=== PATIENT | male | born 1975 | race Caucasian/White ===

== ENCOUNTER 2019-04-10 09:38 | Emergency (ER) | payer MEDICAID ==
[~2019-04-10] VITALS: Ht 160 cm; Wt 65.0 kg
[2019-04-10] MEDS ORDERED: ASPIRIN 81MG TABLET PO ONE (10:15)
[2019-04-10 11:28] LABS: BASOPHILS % 1.1 % (0.0-2.0); EOSINOPHILS % 2.4 % (0.0-5.0); HEMATOCRIT. 49.9 % (42.0-52.0); HEMOGLOBIN. 17.2 g/dL (14.0-18.0); LYMPHOCYTES % 40.4 % (20.0-50.0); MEAN CORPUSCULAR HEMOGLOBIN 31.8 pg (28.0-32.0); MEAN CORPUSCULAR VOLUME 92.1 fL (80.0-94.0); MEAN PLATELET VOLUME 8.4 fl (7.4-10.4); MONOCYTES % 8.2 % (2.0-8.0); NEUTROPHILS % 47.9 % (40.0-76.0); PLATELET 178 x1000/uL (130-400); RED BLOOD CELL COUNT 5.42 mill/uL (4.7-6.1); RED CELL DISTRIBUTION WIDTH 12.7 % (11.6-14.6)
[2019-04-10 11:35] LABS: CHLORIDE 104 mEq/L (98-107)
[2019-04-10 13:36] VITALS: BP 128/98
== END 2019-04-10 13:37 | disposition home or self-care (01) ==
LOC: ER 09:38
DX: F10.10 Alcohol abuse, uncomplicated (principal); N48.1 Balanitis; E11.9 Type 2 diabetes mellitus without complications; R79.89 Other specified abnormal findings of blood chemistry; R07.9 Chest pain, unspecified; Y90.9 Presence of alcohol in blood, level not specified
CPT/HCPCS: 36415; 71045; 80053; 83880; 84484; 85025; 93005; 99284; Z7610

== ENCOUNTER 2022-09-14 10:47 | Emergency (ER) | payer SELFPAY ==
[~2022-09-14] VITALS: Ht 165.1 cm; Wt 80.0 kg
[2022-09-14 10:59] VITALS: O2SAT 100
[2022-09-14] MEDS ORDERED: SODIUM CHLORIDE 0.9% 1,000 ML IV ONE ×2 (11:15→14:45)
[2022-09-14 12:08] LABS: EOSINOPHILS % 0.3 % (0.0-5.0); HEMATOCRIT. 48.5 % (42.0-52.0); LYMPHOCYTES % 31.6 % (20.0-50.0); MEAN CORPUSCULAR VOLUME 92.5 fL (80.0-94.0); MEAN PLATELET VOLUME 10.1 fl (7.4-10.4); MONOCYTES % 9.5 % (2.0-8.0); NEUTROPHILS % 57.6 % (40.0-76.0); PLATELET 161 x1000/uL (130-400); RED BLOOD CELL COUNT 5.25 mill/uL (4.7-6.1); RED CELL DISTRIBUTION WIDTH 13.7 % (11.6-14.6)
[2022-09-14 12:31] LABS: HEMOGLOBIN. 16.8 g/dL (14.0-18.0)
[2022-09-14 12:40] VITALS: TEMP 98.6
[2022-09-14 14:08] LABS: INR 1.2; PROTHROMBIN TIME 12.9 sec (9.6-11.0)
[2022-09-14 14:35] LABS: CHLORIDE 97 mEq/L (98-107)
[2022-09-14 14:49] LABS: BETA HYDROXYBUTYRATE 0.3 mMol/L (0.0-0.3); ETHANOL BLOOD < 10 mg/dL (-10)
[2022-09-14] MEDS ORDERED: LORAZEPAM 2MG/ML CPJ IV NR (15:15)
[2022-09-14] MEDS ORDERED: MAGNESIUM/ALUMINUM HYDROXIDE/SIMETHICONE 30ML UDC PO NR (15:15)
[2022-09-14] MEDS ORDERED: METOCLOPRAMIDE HCL 10MG/2ML VIAL IV NR (15:15)
[2022-09-14] MEDS ORDERED: ONDA4TAB50 MT (15:22)
[2022-09-14] MEDS ORDERED: THIA250T3 MT (15:22)
[2022-09-14 16:20] LABS: CHLORIDE 99 mEq/L (98-107)
[2022-09-14 18:00] VITALS: BP 142/80; PULSE 80; RESP 18
== END 2022-09-14 19:07 | disposition home or self-care (01) ==
LOC: ER 10:59 → CANBEDREQ 17:53 → ER 19:07
DX: R42 Dizziness and giddiness (principal); R55 Syncope and collapse; E86.0 Dehydration; E11.9 Type 2 diabetes mellitus without complications; Z91.148 Patient's other noncompliance with medication regimen for other reason
CPT/HCPCS: 80053; 80048; 82010; 80320; 82962; 83605; 83690; 85025; 85610; 84484; 36415; 71045; 70450; 93005; 96361; 96374; 96375; 99285; J2060; J2765; J7030; Z7610 ×2; G0480

== ENCOUNTER 2022-11-10 08:02 | Emergency (ER) | payer SELFPAY ==
[~2022-11-10] VITALS: Ht 170.2 cm; Wt 101.0 kg
[~2022-11-10 08:02] MED LIST: ONDA4TAB50 MT; THIA250T3 MT
[2022-11-10 08:07] VITALS: BP 132/96; RESP 16; TEMP 98.9; O2SAT 99
[2022-11-10 08:11] VITALS: PULSE 98
[2022-11-10 08:46] LABS: HEMATOCRIT. 46.6 % (42.0-52.0); HEMOGLOBIN. 16.4 g/dL (14.0-18.0); MEAN CORPUSCULAR HEMOGLOBIN 33.7 pg (28.0-32.0); MEAN CORPUSCULAR HGB CONC 35.3 g/dL (31.0-37.0); MEAN CORPUSCULAR VOLUME 95.7 fL (80.0-94.0); MEAN PLATELET VOLUME 9.7 fl (7.4-10.4); PLATELET 111 x1000/uL (130-400); RED BLOOD CELL COUNT 4.87 mill/uL (4.7-6.1); RED CELL DISTRIBUTION WIDTH 14.2 % (11.6-14.6); WHITE BLOOD COUNT 6.2 x1000/uL (4.5-11.0)
[2022-11-10 08:54] LABS: DIFFERENTIAL COMMENT 1
[2022-11-10 10:15] LABS: POTASSIUM 4.4 mEq/L (3.5-5.1); SODIUM 133 mEq/L (136-145)
[2022-11-10 10:16] LABS: ALANINE AMINOTRANSFERASE 110 IU/L (13-61); ALBUMIN 3.3 g/dL (3.4-5.0); ASPARTATE AMINOTRANSFERASE 214 IU/L (15-37); BILIRUBIN TOTAL 2.9 mg/dL (0.1-1.0); CALCIUM 8.6 mg/dL (8.5-10.1); CARBON DIOXIDE 21 mEq/L (21-32); CHLORIDE 101 mEq/L (98-107); CREATININE 0.6 mg/dL (0.6-1.3); GLUCOSE 302 mg/dL (70-105); PROTEIN TOTAL 6.8 g/dL (6.0-8.3); UREA NITROGEN BLOOD 8 mg/dL (7-21)
[2022-11-10 10:17] LABS: INDEX HEMOLYSI 1 (1-3); INDEX ICTERIC 2 (1-4); INDEX LIPEMIC 3 (1-3); TROPONIN I HIGH SENSITIVITY 10 ng/L (<78)
[2022-11-10 10:21] LABS: PLATELET ESTIMATE SLIGHTLY DECREASED
[2022-11-10] MEDS ORDERED: SODIUM CHLORIDE 0.9% 1,000 ML IV ONE (12:15)
[2022-11-10 12:46] LABS: CLARITY URINE CLEAR (CLEAR); COLOR URINE DARK YELLOW (YELLOW); GLUCOSE URINE 1+ (NEGATIVE); KETONES URINE 1+ (NEGATIVE); LEUKOCYTE ESTERASE URINE TRACE (NEGATIVE); NITRITE URINE NEGATIVE (NEGATIVE); OCCULT BLOOD URINE NEGATIVE (NEGATIVE); PH URINE 6.5 (4.5-8.0); PROTEIN URINE TRACE (NEGATIVE); SPECIFIC GRAVITY URINE 1.027 (1.005-1.030)
[2022-11-10 13:42] LABS: SQUAMOUS EPITHELIAL CELL URINE RARE /lpf (RARE/1+)
[2022-11-10 13:43] LABS: BACTERIA URINE TRACE; WBC URINE 0-2 /hpf (0-2)
[2022-11-10 13:44] LABS: RBC URINE NONE SEEN /hpf (0-2)
== END 2022-11-10 13:55 | disposition left against medical advice (07) ==
LOC: ER 08:02
DX: R42 Dizziness and giddiness (principal); E11.9 Type 2 diabetes mellitus without complications
CPT/HCPCS: 36415; 71045; 80053; 81003; 82962; 84484; 85025; 93005; 99285

== ENCOUNTER 2023-04-27 00:45 | Emergency (ER) | payer MEDICAID ==
[~2023-04-27] VITALS: Ht 160 cm; Wt 77.0 kg
[2023-04-27 00:48] VITALS: O2SAT 98
[2023-04-27 02:09] LABS: BASOPHILS % 0.9 % (0.0-2.0); DIFFERENTIAL COMMENT 0; EOSINOPHILS % 0.9 % (0.0-5.0); HEMATOCRIT. 48.7 % (42.0-52.0); HEMOGLOBIN. 16.9 g/dL (14.0-18.0); LYMPHOCYTES % 23.3 % (20.0-50.0); MEAN CORPUSCULAR HEMOGLOBIN 33.8 pg (28.0-32.0); MEAN CORPUSCULAR HGB CONC 34.7 g/dL (31.0-37.0); MEAN CORPUSCULAR VOLUME 97.5 fL (80.0-94.0); MEAN PLATELET VOLUME 9.2 fl (7.4-10.4); NEUTROPHILS % 64.9 % (40.0-76.0); PLATELET 58 x1000/uL (130-400); RED CELL DISTRIBUTION WIDTH 13.7 % (11.6-14.6); WHITE BLOOD COUNT 7.7 x1000/uL (4.5-11.0)
[2023-04-27 03:09] LABS: ALANINE AMINOTRANSFERASE 79 IU/L (10-49); ALBUMIN 4.2 g/dL (3.2-4.8); ASPARTATE AMINOTRANSFERASE 181 IU/L (<34); BILIRUBIN TOTAL 3.3 mg/dL (0.1-1.0); CALCIUM 8.8 mg/dL (8.7-10.4); CARBON DIOXIDE 23 mEq/L (21-32); CHLORIDE 97 mEq/L (98-107); CREATININE 0.6 mg/dL (0.6-1.3); GLUCOSE 236 mg/dL (70-105); POTASSIUM 4.3 mEq/L (3.5-5.1); PROTEIN TOTAL 8.1 g/dL (6.0-8.3); SODIUM 132 mEq/L (136-145); TROPONIN I HIGH SENSITIVITY 10 ng/L (3.0-53)
[2023-04-27 03:10] LABS: UREA NITROGEN BLOOD < 5 mg/dL (9-23)
[2023-04-27] MEDS: CHLORDIAZEPOXIDE 25MG CAPSULE PO ONE (09:14)
[2023-04-27] MEDS: IBUPROFEN 600MG TABLET PO ONE (09:14)
[2023-04-27 10:29] VITALS: BP 115/77; PULSE 87; RESP 17; TEMP 98.4
== END 2023-04-27 10:44 | disposition home or self-care (01) ==
LOC: ER 01:40
DX: R07.89 Other chest pain (principal); K74.60 Unspecified cirrhosis of liver; F10.20 Alcohol dependence, uncomplicated; E11.9 Type 2 diabetes mellitus without complications; Y90.9 Presence of alcohol in blood, level not specified
CPT/HCPCS: 80053; 85025; 84484; 36415; 71045; 76700; 93005; 99285; Z7610